=== PATIENT | female | born 1955 | race Caucasian/White ===

== ENCOUNTER 2025-03-09 07:49 | Observation (INO) | payer MEDICARE, OTHER ==
[~2025-03-09] VITALS: Ht 160 cm; Wt 87.4 kg
[2025-03-09] MEDS ORDERED: ASPI81TA26 PO (08:06)
[2025-03-09] MEDS ORDERED: ACET-716 PO (08:06)
[2025-03-09] MEDS ORDERED: METF-838 PO (08:14)
[2025-03-09] MEDS ORDERED: FLUO15CR3 TOP (08:14)
[2025-03-09] MEDS ORDERED: TRUL0.5I SUBQ (08:14)
[2025-03-09] MEDS ORDERED: LEVO25TA5 PO (08:14)
[2025-03-09] MEDS ORDERED: MULT-90 PO (08:14)
[2025-03-09] MEDS ORDERED: LOSA50TA28 PO (08:14)
[2025-03-09] MEDS ORDERED: FERR325T3 PO (08:14)
[2025-03-09] MEDS ORDERED: DOXE75CA2 PO (08:14)
[2025-03-09] MEDS ORDERED: FLON1SPR NARES (08:14)
[2025-03-09] MEDS ORDERED: DICL75TA PO (08:14)
[2025-03-09] MEDS ORDERED: HYDR-4514 PO (08:14)
[2025-03-09] MEDS ORDERED: HYDR-3490 PO (08:14)
[2025-03-09] MEDS ORDERED: CALC-190 PO (08:14)
[2025-03-09] MEDS ORDERED: CYCL5TAB4 PO (08:14)
[2025-03-09] MEDS ORDERED: NORV5TAB PO (08:14)
[2025-03-09] MEDS ORDERED: METO1TAB7 PO (08:14)
[2025-03-09] MEDS ORDERED: OMEP40CA5 PO (08:14)
[2025-03-09] MEDS ORDERED: MAGN250T7 PO (08:14)
[2025-03-09] MEDS ORDERED: ROSU20TA86 PO (08:14)
[2025-03-09] MEDS ORDERED: HOME MED LIST COMPLETE! XX SCH (09:30)
[2025-03-09] MEDS ORDERED: CEFD1CAP9 PO (09:30)
[2025-03-09] MEDS ORDERED: METF10004 PO (09:30)
[2025-03-09] MEDS: KETOROLAC 30 MG/ML 1 ML VIAL IV ONE (09:58)
[2025-03-09 10:01] LABS: BASO # 0.0 10^3/uL (0.0-0.2); BASO % 0.5 % (0.0-1.0); EOS # 0.2 10^3/uL (0.0-0.5); EOS % 2.4 % (0.0-3.0); LYMPH # 0.9 10^3/uL (1.5-5.0); LYMPH % 11.3 % (24.0-44.0); MONO # 0.7 10^3/uL (0.0-0.8); MONO % 8.4 % (2.0-8.0); NEUTROPHILS # 6.1 10^3/uL (1.5-8.5); NEUTROPHILS % 76.8 % (36.0-66.0); PLATELET COUNT, AUTOMATED 327 10^3/uL (150-450)
[2025-03-09 10:11] LABS: ERYTHROCYTE SEDIMENTATION RATE 48 mm/hr (0-30)
[2025-03-09 10:34] LABS: C REACTIVE PROTEIN QUANTITATIV 0.60 MG/DL (<1.0); CALCIUM LEVEL 9.2 MG/DL (8.3-10.6); CARBON DIOXIDE LEVEL 26 MMOL/L (20-31); CHLORIDE LEVEL 102 MMOL/L (98-107); CREATININE FOR GFR 0.64 MG/DL (0.55-1.30); GLOMERULAR FILTRATION RATE > 90.0 (>39); POTASSIUM SERUM 4.0 MMOL/L (3.5-5.1); SODIUM LEVEL 140 MMOL/L (136-145)
[2025-03-09] MEDS ORDERED: MOM 30 ML SUSPENSION UDC PO PRN (13:35)
[2025-03-09] MEDS ORDERED: MAALOX 30 ML SUSP *UDC PO PRN (13:35)
[2025-03-09] MEDS ORDERED: ACETAMINOPHEN 325 MG TAB PO PRN (13:35)
[2025-03-09] MEDS ORDERED: MORPHINE 2 MG/ML 1 ML VIAL IV PRN (13:40)
[2025-03-09] MEDS ORDERED: GLUCAGON INJ 1 MG VIAL SC PRN (13:40)
[2025-03-09] MEDS ORDERED: GLUCOSE 4 GM CHEW PO PRN (13:40)
[2025-03-09] MEDS ORDERED: DEXTROSE 50% 50 ML SYRINGE IV PRN (13:40)
[2025-03-09] MEDS: LIDOCAINE 5% PATCH TD ONE (15:26)
[2025-03-09] MEDS: INSULIN LISPRO (NovoLOG) PER UNIT SC SCH ×2 (17:30→21:00)
[2025-03-09] MEDS: OMEPRAZOLE 20MG CAP PO SCH (21:21)
[2025-03-09] MEDS: LOSARTAN 50 MG TABLET PO SCH (21:22)
[2025-03-09] MEDS: amLODIPine 5 MG TAB PO SCH (21:22)
[2025-03-09 21:23] VITALS: BP 139/67
[2025-03-09] MEDS: FERROUS SULFATE 325 MG TAB PO SCH (21:23)
[2025-03-09] MEDS: hydroCHLOROthiazide 25 MG TAB PO SCH (21:23)
[2025-03-09] MEDS: METOPROLOL SUCC. 50 MG *XL* TAB PO SCH (21:23)
[2025-03-09] MEDS: ROSUVASTATIN 10 MG TAB PO SCH (21:23)
[2025-03-09] MEDS: HEPARIN SOD 5000 UNITS/ML 1 ML VIAL/SYRINGE SC SCH (21:24)
[2025-03-09] MEDS: CEFDINIR 300 MG CAP PO SCH (21:32)
[2025-03-09] MEDS: DICLOFENAC EPOLAMINE 1.3% PATCH TOP SCH (22:36)
[2025-03-09] MEDS: DOXEPIN 25 MG CAP PO SCH (22:36)
[2025-03-10] MEDS: LEVOTHYROXINE 25 MCG TABLET (0.025MG) PO SCH (05:56)
[2025-03-10] MEDS: predniSONE 20 MG TAB PO SCH (08:52)
[2025-03-10] MEDS: LIDOCAINE 5% PATCH TD SCH (08:53)
[2025-03-10 09:11] LABS: CALCIUM LEVEL 9.0 MG/DL (8.3-10.6); CARBON DIOXIDE LEVEL 25 MMOL/L (20-31); CHLORIDE LEVEL 100 MMOL/L (98-107); CREATININE FOR GFR 0.65 MG/DL (0.55-1.30); GLOMERULAR FILTRATION RATE > 90.0 (>39); MAGNESIUM LEVEL 1.8 MG/DL (1.8-2.4); POTASSIUM SERUM 4.2 MMOL/L (3.5-5.1); SODIUM LEVEL 137 MMOL/L (136-145)
[2025-03-10] MEDS: CEFDINIR 300 MG CAP PO SCH (11:36)
[2025-03-10] MEDS: KETOROLAC 30 MG/ML 1 ML VIAL IV PRN (11:37)
[2025-03-10] MEDS ORDERED: PRED20TA PO (12:09)
[2025-03-10] MEDS ORDERED: KETO-204 PO (12:09)
[2025-03-10] MEDS ORDERED: OXYC-517 PO (12:09)
[2025-03-10] MEDS ORDERED: LIDO5TD TD (12:09)
[2025-03-10] MEDS ORDERED: DICL1PAT6 TOP (12:09)
[2025-03-10 13:54] VITALS: BP 148/67; TEMP 98.2; O2SAT 96
== END 2025-03-10 13:55 | disposition home or self-care (01) ==
LOC: EDBD 07:49 → M ED 07:49 → M ED INP 07:50 → INTOOBSV 13:33 → UNDOADMOB 13:33
PROVIDERS: ADMIT Student in an Organized Health Care Education/Training Program; ATTEND Student in an Organized Health Care Education/Training Program
DX: M48.062 Spinal stenosis, lumbar region with neurogenic claudication (principal); M54.16 Radiculopathy, lumbar region; E11.9 Type 2 diabetes mellitus without complications; E78.5 Hyperlipidemia, unspecified; K76.0 Fatty (change of) liver, not elsewhere classified; K21.9 Gastro-esophageal reflux disease without esophagitis; I10 Essential (primary) hypertension; Z79.82 Long term (current) use of aspirin; Z79.899 Other long term (current) drug therapy; Z79.84 Long term (current) use of oral hypoglycemic drugs; Z79.52 Long term (current) use of systemic steroids
CPT/HCPCS: 36415; 72148; 80048; 83735; 85025; 85652; 86140; 96372; 96374; 96375; 96376; 97161; 97165; 97535; 99285; G0378; J1100; J1885; J3010; J3360; J7512